=== PATIENT | female | born 1960 | race Caucasian/White ===

== ENCOUNTER 2019-01-27 06:49 | Day surgery (SDC) | payer MEDICAID ==
[2019-01-27] MEDS ORDERED: Midazolam 1 MG/ML 2 ML SDV ONE (07:07)
[2019-01-27] MEDS ORDERED: Propofol 200 MG/20 ML SDV ONE (07:07)
[2019-01-27] MEDS ORDERED: fentaNYL 100 MCG/2 ML SDV ONE (07:07)
[2019-01-27] MEDS ORDERED: Sodium Chloride 0.9% 1,000 ML IV SCH (07:45)
[2019-01-27 09:55] VITALS: BP 131/87; PULSE 64
--- NOTE | 2019-01-27 10:51 | OR ---
DATE OF PROCEDURE: 01/27/2019 PROCEDURE: Colonoscopy. FINDINGS: 1. Diverticulosis, mild. 2. No other gross abnormalities. COMPLICATIONS: None. 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 PREOPERATIVE DIAGNOSIS: Screening colonoscopy. POSTOPERATIVE DIAGNOSIS: Screening colonoscopy. RISKS: Risks, benefits, alternatives, and limitations including, but not limited to, infection, bleeding, and perforation were explained to the patient, who wished to proceed. PROCEDURE IN DETAIL: The patient was placed in left lateral decubitus position. Digital rectal exam was performed without abnormality. The scope was introduced and advanced atraumatically to the ileocecal valve. The scope was brought back through the ascending, transverse, descending colon, and retroflexed. No masses. No polyps. No old or new blood. Diverticulosis was described as mild, mostly limited to sigmoid and ascending colon. No abnormalities on retroflexion. The patient tolerated the procedure well. Abdiel Coyne MD /[id number]
== END 2019-01-27 09:40 | disposition home or self-care (01) ==
LOC: JP.SDS 06:49
PROVIDERS: ATTEND Surgery
DX: Z12.11 Encounter for screening for malignant neoplasm of colon (principal); K57.30 Diverticulosis of large intestine without perforation or abscess without bleeding; I10 Essential (primary) hypertension; E78.5 Hyperlipidemia, unspecified; K21.9 Gastro-esophageal reflux disease without esophagitis; E66.3 Overweight; Z68.26 Body mass index [BMI] 26.0-26.9, adult
CPT/HCPCS: 45378; J2250; J2704; J3010; J7030